=== PATIENT | male | born 1955 | race Caucasian/White ===

== ENCOUNTER 2021-10-09 14:50 | Inpatient (IN) | payer MEDICARE, OTHER ==
[~2021-10-09] VITALS: Ht 185.4 cm; Wt 122.5 kg
[~2021-10-09 14:50] MED LIST: ASPIRIN CHEWABL81 MG PO; BACTRIM DS TAB1 EACH PO; BACTROBAN OINT22 GM EXT; BIOTIN PO; CALCIUM CARBON500 MG PO; CYMBALTA 20 MG20 MG PO; DICLOFENAC SOD100 GM TP; FENOFIBRATE54 MG PO; FORTAZ IV ADV1000 MG IV; GABAPENTIN800 MG PO; GLUCOPHAGE XR500 MG PO; HYDROCHLOROTHIA25 MG PO; JANUVIA100 MG PO; LEVAQUIN500 MG PO; LEVAQUIN750 MG PO; LIPITOR TAB 2020 MG PO; LORTAB 7.5-3251 EACH PO; NORCO 10-325 T1 EACH PO; OMEPRAZOLE20 MG PO; TRICOR48 MG PO; TURMERIC PO; VITAMIN B-121000 MCG PO; VITAMIN C1000 MG PO; ZESTRIL2.5 MG PO
[2021-10-09 16:03] LABS: HEMOGLOBIN 12.1 gm/dl (14.0-17.5); RED BLOOD COUNT 4.11 M/UL (4.20-5.50)
[2021-10-09 16:09] LABS: WHITE BLOOD COUNT 31.3 K/UL (4.5-11.0)
[2021-10-09 18:27] LABS: BUN/CREATININE RATIO 19 (0-10)
[2021-10-10 03:37] LABS: RED BLOOD COUNT 3.5 M/UL (4.20-5.50); WHITE BLOOD COUNT 30.8 K/UL (4.5-11.0)
[2021-10-10 04:07] LABS: BUN/CREATININE RATIO 20 (0-10)
[2021-10-10] MEDS ORDERED: AUGMENTIN 875-1 EACH PO (12:21)
[2021-10-10] MEDS ORDERED: LISINOPRIL5 MG PO (12:22)
[2021-10-10] MEDS ORDERED: PROAIR DIGIHAL90 MCG INH (12:22)
[2021-10-10] MEDS ORDERED: VITAMIN B-6100 MG PO (12:23)
[2021-10-10] MEDS ORDERED: OZEMPIC0.25 MG/0. SQ (12:23)
[2021-10-10] MEDS ORDERED: VITAMIN D325 MCG PO (12:24)
[2021-10-10] MEDS ORDERED: HUMALOG 10100 UNITS/ SC ×2 (15:38)
[2021-10-10] MEDS ORDERED: LANTUS INS100 UTS/M1 SQ (15:38)
[2021-10-10] MEDS ORDERED: NOVOLOG 10100 UNITS/ INJ (16:28)
[2021-10-10] MEDS ORDERED: BASAGLAR K100 UNIT/1 SC (17:13)
[2021-10-10] MEDS ORDERED: HYDROCODON-ACE1 EAC4 PO (17:23)
== END 2021-10-10 21:48 | disposition short-term general hospital (02) | DRG 300 ==
LOC: ER1 14:50 → CDU 18:25 → MED SURG 4 10-10 13:52
PROVIDERS: Physician Assistant; ADMIT Internal Medicine
DX: E11.52 Type 2 diabetes mellitus with diabetic peripheral angiopathy with gangrene (principal); L03.115 Cellulitis of right lower limb; E87.1 Hypo-osmolality and hyponatremia; E87.2 Acidosis; E66.01 Morbid (severe) obesity due to excess calories; Z20.822 Contact with and (suspected) exposure to COVID-19; I10 Essential (primary) hypertension; J44.9 Chronic obstructive pulmonary disease, unspecified; E11.621 Type 2 diabetes mellitus with foot ulcer; F17.210 Nicotine dependence, cigarettes, uncomplicated; K74.60 Unspecified cirrhosis of liver; E78.00 Pure hypercholesterolemia, unspecified; F41.9 Anxiety disorder, unspecified; F32.A Depression, unspecified; Z79.4 Long term (current) use of insulin; Z88.8 Allergy status to other drugs, medicaments and biological substances; Z83.3 Family history of diabetes mellitus; Z82.49 Family history of ischemic heart disease and other diseases of the circulatory system; Z68.35 Body mass index [BMI] 35.0-35.9, adult
CPT/HCPCS: 71045; 71110; 73630; 73718; 80053; 81001; 82962; 83036; 83605; 83735; 83880; 84439; 84443; 85025; 85610; 85652; 85730; 86140; 87040; 87070; 87077; 87205; 93926; 93971; 96365; 99285; J1650; J2270; J2543; J3370; J7070; U0002